=== PATIENT | male | born 1950 | race Caucasian/White ===

== ENCOUNTER 2020-01-16 15:27 | Observation (INO) | payer MEDICARE ==
[2020-01-16] MEDS ORDERED: diphenhydrAMINE 50 MG/ML VIAL ONE (15:52)
[2020-01-16] MEDS ORDERED: Ondansetron PF 4 MG/2 ML Vial ONE (15:52)
[2020-01-16] MEDS ORDERED: Metoclopramide HCl 10 MG/2 ML VIAL ONE (15:52)
[2020-01-16] MEDS ORDERED: Bacitracin 1 PK ONE (15:55)
--- NOTE | 2020-01-16 16:18 | RAD ---
PORTABLE CHEST: Date: 01-16-2020 Provided Clinical History: Fall FINDINGS: Elevation of the left hemidiaphragm is noted. Heart size appears normal for portable technique. No fo carlos consolidation, pleural fluid, or pneumothorax apparent. Bony thorax appears grossly intact. IMPRESSION: No evidence for an acute cardiopulmonary process. POS: HARRY
[2020-01-16 17:10] LABS: PTT 25.2 sec (22.9-36.1); Prothrombin Time 13.6 sec (12.0-14.7)
[2020-01-16] MEDS ORDERED: Ondansetron PF 4 MG/2 ML Vial IVP PRN (17:20)
[2020-01-16] MEDS ORDERED: Dextrose 50% Abboject 50 ML SYRINGE SLOW IVP PRN (17:20)
[2020-01-16] MEDS ORDERED: Dextrose 5% in Water 1,000 ML IV PRN (17:20)
[2020-01-16] MEDS ORDERED: hydrALAZINE 20 MG/ML VIAL SLOW IVP PRN (17:20)
--- NOTE | 2020-01-16 20:37 | HP ---
TRAUMA SURGEON: Dr. Norris. CONSULTING PHYSICIAN: Dr. Loredo. HISTORY OF PRESENT ILLNESS: The patient is a 69-year-old male, who was transferred from an outside hospital. He was a level 2 trauma activation. The patient reported that he was told that a horse kicked the door of a trailer. Subsequently, it hit him on his head. He is amnestic to the events and he does not remember ambulating after the incident. He does not use any anticoagulation and reports positive loss of consciousness. He denies photophobia, phonophobia, nausea, vomiting, and difficulty concentrating at the time of my evaluation. He denies numbness and tingling in his upper and lower extremities. He denies neck or back pain. REVIEW OF SYSTEMS: All additional 10-point review of systems negative except as indicated above. PAST MEDICAL HISTORY: None. PAST SURGICAL HISTORY: Skin grafting of the left hand, left foot surgery, basal cell carcinoma removal on his head and neck. SOCIAL HISTORY: The patient denies tobacco and drug use. He drinks about one mixed drink at night. MEDICATIONS: He takes Advil as needed for pain. ALLERGIES: DEMEROL. PHYSICAL EXAMINATION: VITAL SIGNS: Temperature 98.2, pulse 70, respirations 20, oxygen saturation 96% on room air, blood pressure 129/84. PRIMARY SURVEY: Airway intact. Adequate breath sounds bilaterally. 2+ pulses in the bilateral radials, femorals, and DPs. GCS 15. Gross motor and sensation intact. He has an abrasion to his posterior head as well as a large abrasion to his left inner thigh. SECONDARY SURVEY: HEAD: Normocephalic. No gross palpable skull deformities. He has an abrasion to the posterior parietal aspect of the head with bleeding controlled. EYES: Pupils 3 to 2, equal, round, reactive to light bilaterally. ENT: No hemotympanum. No epistaxis. No septal hematoma. Midface stable to manipulation. No blood in the oropharynx. Dentition is intact. No anterior neck injury/crepitus/tenderness. C-SPINE: No step-offs or deformities, nontender. C-collar not in place. CHEST: Nontender. No crepitus. No abrasions or ecchymosis. Equal chest movement. ABDOMEN: Soft, nontender, nondistended. PELVIS: Stable to palpation, nontender. RECTAL: Deferred. GENITOURINARY: Deferred. EXTREMITIES: The patient has a large abrasion to his left inner thigh. No active bleeding. 2+ pulses in the bilateral radials, femorals, and DPs. BACK/SPINE: No step-offs, deformities, or tenderness to palpation of the thoracic or lumbar spine. No abrasions or ecchymosis noted. NEUROLOGIC: 5/5 strength in the bilateral head of english, plantar flexion, dorsiflexion, gross normal sensation x4 extremities. LABORATORY FINDINGS: White count 6.4, hemoglobin 15.9, hematocrit 51.0, platelets 224. INR 1.0. Sodium 140, potassium 4.0, chloride 106, bicarb 22, BUN 18, creatinine 1.20, glucose 93, total bilirubin 1.0, AST 21, ALT 23, alk phos 73. DIAGNOSTIC FINDINGS: CT scan of the brain demonstrates a 7 mm solitary foci of increased density adjacent to the right parietal region near the midline that could reflect a solitary small focus of extra-axial blood. Consider followup. 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 The cranial aspect of the left hemidiaphragm are not included in the imaging volume. Limited assessment for diaphragmatic integrity. CT scan of the C-spine demonstrates no evidence for fracture or traumatic subluxation. Chest x-ray demonstrates no evidence for acute cardiopulmonary process. ASSESSMENT: 1. Status post blunt trauma by livestock. 2. 7 mm solitary extra-axial bleeding of the right parietal region of the brain. 3. Large abrasion to the left inner thigh. PLAN: The patient will be admitted to the Trauma Service. He will be n.p.o. and receive normal saline at [address] head CT in the morning per Dr. Loredo and his team, who has evaluated the patient. Head of the bed at 30 degrees. Goal systolic blood pressure less than 160. The patient to receive Tylenol for pain control, bacitracin to wound. We will advance his diet if his GCS remains [address] is stable. In the morning, we will have Physical therapy, Occupational Therapy, and Speech Language Pathology evaluate the patient. He will likely be discharged home tomorrow if his CT scan is stable. This patient was discussed with Dr. Norris before this dictation. Job ID: [id number]
[2020-01-16] MEDS: Acetaminophen 500 MG TAB PO SCH ×2 (21:15→23:31)
[2020-01-16 21:23] VITALS: BMI 36.6
[2020-01-16] MEDS: Sodium Chloride 0.9% 1,000 ML IV SCH (21:27)
[2020-01-16] MEDS: Bacitracin 1 PK TOP SCH (21:27)
[2020-01-16] MEDS: Pantoprazole 40 MG VIAL IVP SCH (21:28)
[2020-01-16] MEDS: Senokot S 8.6-50 MG TAB PO SCH (21:29)
--- NOTE | 2020-01-17 | CON ---
DATE OF CONSULTATION: 01/16/2020 HISTORY OF PRESENT ILLNESS: Mr. Lopez is a 69-year-old gentleman, who is a transfer from [facility] in [place] to the [facility] Emergency Department in [place]. He went to his friend's house and was helping his friend move his horse for transport to the perinatology physician because horse had colic. As they were getting the horse into the trailer and he was closing the gate, the horse backed out very quickly and passed causing Mr. Lopez to go airborne and falling backwards hitting his head on the ground. He does not remember what happened. Obviously, he lost consciousness for the amount of time is unknown. He is moving all his extremities well. He is answering all my questions and talking appropriately. The brain CT indicated a bilateral parafalcine subdural hematoma. He was transferred to brain ED for further evaluation. PAST MEDICAL HISTORY: None. SOCIAL HISTORY: Does not smoke. Occasionally drinks alcohol. Denies illicit drugs. PAST SURGICAL HISTORY: A left skin graft on his palm, right ankle surgery, and removal of carcinoma in his head and neck. FAMILY HISTORY: Not given. REVIEW OF SYSTEMS: CONSTITUTIONAL: Denies fever or chills. EYES, EAR, NOSE, AND THROAT: Denies change in vision or hearing. CARDIAC: Denies chest pain, shortness of breath, or diaphoresis. PULMONARY: Denies shortness of breath, cough, or hemoptysis. GI: Denies abdominal pain, nausea, vomiting, diarrhea, and change in stool formation and consistency. : Denies trouble in urination, frequency of urination, and bloody urine. SKIN: Reports abrasion to the head and to the left upper inner anterior thigh. MUSCULOSKELETAL: As per history of present illness. NEUROLOGIC: As per history of present illness. PSYCHOLOGIC: Denies anxiety, depression, or behavior changes. PHYSICAL EXAMINATION: VITAL SIGNS: BP 118/79, heart rate 64, and temperature 98.6. HEENT: Pupils are equal. Extraocular movements are intact. NECK: Soft and supple. No masses are noted. Range of motion is intact and nonpainful. NEUROLOGIC: Awake, alert, and oriented x3. Memory, attention, and fund of knowledge normal. Cranial nerves are grossly intact. GCS 15. UPPER EXTREMITIES: He has excellent strength bilateral in his biceps, triceps, wrist extension, finger extension, and finger intrinsics. Sensation equal bilaterally. Reflexes symmetric. LOWER EXTREMITIES: He has excellent strength bilaterally in his iliopsoas, quadriceps, hamstrings, anterior tib, EHL, and gastrocnemius. There is no area of dermatomal sensory loss. Reflexes are symmetric. LABORATORY DATA: Platelets 224,000. Sodium 140. Coags pending. IMAGING: CT of the brain, bilateral parafalcine subdural hematoma. PLAN: Repeat CT of the brain in the morning. If scan shows improvement or no change, he could be discharged when he is safe for ADLs. Supportive care. No intracranial surgery at this time. We will have him follow up in our clinic and repeat scan in 2 to 3 weeks. Job ID: [id number]
[2020-01-17] MEDS: Sodium Chloride 0.9% 1,000 ML IV SCH (01:50)
[2020-01-17 05:26] LABS: #Eosinphils 0.1 thou/uL (0.0-0.7); #Lymphocytes 1.8 thou/uL (1.20-3.40); #Monocytes 0.9 thou/uL (0.11-0.59); #Neutrophils 5.9 thou/uL (1.40-6.50); %Basophils 0.5 % (0.0-1.0); %Eosinophils 1.6 % (0.0-10.0); %Lymphocytes 20.1 % (21.0-51.0); %Monocytes 10.5 % (0.0-10.0); %Neutrophils 67.3 % (42.0-75.0); Hemoglobin 15.3 g/dL (14.0-18.0); Mean Platelet Volume 8.4 fL (7.4-10.4); Platelet Count 204 thou/uL (130-400); RBC Distribution Width 12.7 % (11.5-14.5); Red Blood Cell (RBC) Count 4.94 mill/uL (4.70-6.10); White Blood Cell (WBC) Count 8.7 thou/uL (4.8-10.8)
[2020-01-17 05:47] LABS: Anion Gap 9 mmol/L (10-20); BUN (Urea Nitrogen) 16 mg/dL (8.4-25.7); Calc. Creatinine Clearance 98 mL/min (70-130); Calcium 8.8 mg/dL (7.8-10.44); Carbon Dioxide 28 mmol/L (23-31); Chloride 107 mmol/L (98-107); Estimated GFR-MDRD 62; Glucose 103 mg/dL (80-115); Magnesium 1.9 mg/dL (1.6-2.6); Phosphorus 2.9 mg/dL (2.3-4.7); Potassium 3.9 mmol/L (3.5-5.1); Sodium 140 mmol/L (136-145)
[2020-01-17] MEDS: Acetaminophen 500 MG TAB PO SCH ×2 (06:16→11:45)
[2020-01-17] MEDS: Bacitracin 1 PK TOP SCH (07:41)
[2020-01-17] MEDS: Pantoprazole 40 MG VIAL IVP SCH (07:41)
[2020-01-17] MEDS: Senokot S 8.6-50 MG TAB PO SCH (07:41)
--- NOTE | 2020-01-17 08:00 | CT ---
PRELIMINARY REPORT/[facility]/EMERGENCY AFTER HOURS PROCEDURE: EXAM: CT Head Without Intravenous Contrast. CLINICAL HISTORY: [facility] F/U TECHNIQUE: Axial computed tomography images of the head/brain without intravenous contrast. COMPARISON: Prior CT report January 16, 2020. Images are not available at time of dictation. FINDINGS: BRAIN: There is cerebral atrophy. There is no intracranial hemorrhage. Periventricular hypodensities are pre sent secondary to small vessel ischemic disease. VENTRICLES: No hydrocephalus. ORBITS: The orbits are unremarkable. SINUSES AND MASTOIDS: The paranasal sinuses and mastoid air cells are clear. SOFT TISSUES: No significant facial or scalp soft tissue swelling evident. No radiopaque foreign body is seen. BONES: No acute skull fracture. IMPRESSION: No acute intracranial abnormality. ELECTRONICALLY SIGNED BY: Josselyn Bateman MD Jan 17, 2020 5:29:13 AM CDT This report is intended for review by the ordering physician only, in accordance of law. If you recei ve this report in error, please call [facility] at [phone]. FINAL REPORT CT BRAIN WITHOUT CONTRAST: I agree with the preliminary report given by [facility]. Comparison made with exam of previous day. POS: IVAN
[2020-01-17 08:25] VITALS: TEMP 98.2
--- NOTE | 2020-01-17 08:57 | PRG ---
DATE OF SERVICE: 01/17/2020 I saw Erik Lopez on rounds this morning. I personally interviewed and examined, reviewed the records and imaging and agreed with the notes of Sami Keith PA-C dated 01/16/2020. Briefly, Erik Lopez is a 69-year-old gentleman who was helping a friend moving horse into the trailer yesterday and the horse became agitated and backed out quickly, the trailer door hit Mr. Lopez, he fell and struck his head on the ground. He was brought to the emergency department where CT examination of brain revealed 2 small areas of subdural hemorrhage in the parafalcine region in the medial side between the frontal lobe. It did not cause any mass effect and he feels well this morning. On exam, Mr. Lopez has no deficits. He has a bit of headache and felt scared from the incident, but otherwise doing well. His vitals are stable. His neurological examination is normal. His CT examination of the brain this morning does not show the subdural hemorrhages, but they are either resolved or still smaller that they are not seen on the scan. I recommend that we will discharge him today. Followup arrangements will be made. (15 minutes). Job ID: [id number] MTDD
[2020-01-17] MEDS ORDERED: Polyethylene Glycol 3350 17 GM Packet PO SCH (09:00)
[2020-01-17] MEDS ORDERED: Acetaminophen 500 MG TAB PO SCH (09:45)
[2020-01-17 11:30] VITALS: BP 160/79
--- NOTE | 2020-01-18 11:02 | DIS ---
DATE OF ADMISSION: 01/16/2020 DATE OF DISCHARGE: 01/17/2020 HOSPITAL COURSE: Mr. Lopez is a 69-year-old male, who was helping a friend move a horse into a trailer. Horse became agitated and backed out quickly. The trailer door hit Mr. Lopez causing him to go airborne and his head hitting the ground. He was brought to [facility] Emergency Room, where CT examination of the brain revealed small subdural hematoma. He was then admitted to ICU. Repeat scan in the morning showed that the subdural hemorrhage has decreased and he is stable to go home. He is otherwise doing well and ambulating easily in the halls. He is tolerating a regular diet, voiding appropriately. On exam this morning, he is awake and alert, and in no acute distress. He has free range of motion of all extremities. No focal motor weakness. No reflex asymmetry. We will be planning on discharging the patient home today. I have discussed home care precautions with Mr. Lopez. CONDITION ON DISCHARGE: The patient had no emergencies. Condition was stable. DISCHARGE MEDICATIONS: Home going medications were reviewed. FOLLOWUP: Followup arrangements made by our care management coordinator in the clinic and called to the patient. ACTIVITIES: Restrictions were reviewed in person. Job ID: [id number] MTDD
--- NOTE | 2020-01-18 15:50 | DIS ---
DATE OF ADMISSION: 01/16/2020 DATE OF DISCHARGE: 01/17/2020 ADMISSION DIAGNOSES: Small right parietal subdural hematoma and left thigh abrasion. DISCHARGE DIAGNOSES: Small right parietal subdural hematoma and left thigh abrasion. CONSULTING PHYSICIAN: Dr. Loredo. PROCEDURES: The patient had no procedures. HOSPITAL COURSE: The patient is a 69-year-old male, presented to the Emergency Department via EMS as a level 2 trauma activation. The patient reported he was standing behind a trailer when the horse kicked a gate and it hit him in his head. He did have a loss of consciousness and he was amnestic to the event and also appears that the horse grazed the patient's left thigh with his foot, but did not step on him. The patient was evaluated and was found to have a very small right parietal subdural hematoma. GCS is 15. He had no focal neurological deficits at the time of his admission. He was admitted and monitored with q.2 hour neuro checks. Repeat head CT was stable. Dr. Loredo evaluated the patient and deemed him appropriate for discharge and actually discharged him himself. He is to follow up with Dr. Loredo in his clinic. DISCHARGE DISPOSITION: Home. DISCHARGE CONDITION: Satisfactory. PHYSICAL EXAMINATION: VITAL SIGNS: Temperature 98.2, pulse 69, respirations 14, oxygen saturation 95% on room air, blood pressure 160/79. GENERAL: Well-appearing elderly male, sitting up in chair with no signs of acute distress. PULMONARY: Equal chest rise and fall. No signs of acute respiratory distress. CARDIAC: Regular rate and rhythm. DISCHARGE INSTRUCTIONS: The patient was discharged home. No medications. He is to follow up with Dr. Loredo. Activity as tolerated. No PT/OT needs. DISCHARGE MEDICATIONS: Include no medications. RETURN APPOINTMENT: The patient is to follow up with Dr. Loredo in his clinic. He will call to set that up. This is a summary of the patient's hospitalization. For full details, please see his medical record in its entirety. The patient was seen and evaluated on the day of discharge by myself. Job ID: [id number]
== END 2020-01-17 13:47 | disposition home or self-care (01) ==
LOC: ERS 15:27 → SURG A 16:31
PROVIDERS: ADMIT Neurological Surgery; ATTEND Neurological Surgery
DX: S06.5X9A Traumatic subdural hemorrhage with loss of consciousness of unspecified duration, initial encounter (principal); S00.81XA Abrasion of other part of head, initial encounter; S70.312A Abrasion, left thigh, initial encounter; R40.2410 Glasgow coma scale score 13-15, unspecified time; Z88.5 Allergy status to narcotic agent; W22.8XXA Striking against or struck by other objects, initial encounter
CPT/HCPCS: 36415; 70450; 71045; 80048; 83735; 84100; 85025; 85610; 85730; 96361; 96365; 96374; 96375; 96376; C9113; G0378; G0390; J1200; J2405; J2765

== ENCOUNTER 2020-02-01 10:50 | Outpatient (CLI) | payer MEDICARE ==
--- NOTE | 2020-02-01 12:17 | CT ---
CT BRAIN WITHOUT CONTRAST: Date: 02/01/2020 HISTORY: Follow-up subdural hematoma. COMPARISON: and 01/17/2020. FINDINGS: No evidence of acute infarct, hemorrhage, midline shift, or abnormal extra-axial fluid collections ar e seen. The ventricular size is appropriate and the basilar cisterns are patent. The bony calvarium i s intact. The visualized paranasal sinuses and mastoid air cells are well aerated. IMPRESSION: No CT evidence of acute intracranial process. POS: [facility]
== END 2020-02-01 10:51 | disposition home or self-care (01) ==
LOC: SCSCT 10:50
PROVIDERS: ATTEND Neurological Surgery
DX: S06.5X9A Traumatic subdural hemorrhage with loss of consciousness of unspecified duration, initial encounter (principal)
CPT/HCPCS: 70450